=== PATIENT | female | born 1965 | race Two or more races ===

== ENCOUNTER 2020-04-25 09:14 | Outpatient (CLI) | payer OTHER | END 2020-04-25 09:16 | disposition home or self-care (01) | LOC: SONOGRAMA 09:14 | PROVIDERS: ATTEND Pathology Anatomic Pathology & Clinical Pathology | DX: E04.1 Nontoxic single thyroid nodule (principal) ==

== ENCOUNTER 2024-10-23 08:06 | Outpatient (CLI) | payer OTHER ==
[2024-10-23 09:33] LABS: URINE APPEARANCE Clear; URINE BILIRRUBIN Negative (NEGATIVE); URINE BLOOD Negative; URINE COLOR Yellow; URINE KETONE Trace (NEGATIVE); URINE LEUKOCYTE Negative; URINE NITRATE Negative; URINE PROTEIN Negative (NEGATIVE); URINE UROBILINOGEN 0.2 E.U./dl
[2024-10-23 09:37] LABS: URINE BACTERIA 146.8 uL (0.0-1933); URINE EPITHELIAL CELLS 9.9 uL (0.0-38.8); URINE RBC 2.2 uL (0.0-20.8); URINE WBC 42.5 uL (0.0-23.2)
[2024-10-23 09:39] LABS: HEMATOCRIT 42.1 % (36.0-45.00); HEMOGLOBIN 14.1 g/dL (12.0-15.00); MEAN CELL VOLUME 83.3 fL (80.00-100.00); MEAN CORPUSCULAR HEMOGLOBIN 27.9 pg (27.00-32.0); MEAN CORPUSCULAR HGB CONC 33.5 g/dl (32.0-36.0); PLATELET COUNT 259 K/uL (150-450); RED BLOOD COUNT 5.06 M/uL (4.00-6.00); RED CELL DISTRIBUTION WIDTH 13.9 % (11.5-14.5)
[2024-10-23 10:11] LABS: COL EPI 126 SECONDS (82-175)
[2024-10-23 10:22] LABS: PROTHROMBIN TIME 10.9 SECONDS (9.0-11.5)
[2024-10-23 10:26] LABS: ALBUMIN 3.9 gm/dL (3.4-5.0); BILIRUBIN TOTAL 0.48 mg/dL (0.3-1.2); CALCIUM 9.5 mg/dL (8.5-10.1); CREATININE SERUM 0.61 mg/dL (0.55-1.02); GFR 99.71; GLOBULINA 3.5 G/DL (2.4-3.5); POTASSIUM 4.13 mEq/L (3.5-5.1); TOTAL PROTEIN 7.4 gm/dL (6.4-8.2)
[2024-10-23 10:33] LABS: URINE CAST 0.14 uL (0.0-1.40); URINE GLUCOSE >=1000 MG/DL (NEGATIVE)
== END 2024-10-23 08:33 | disposition home or self-care (01) ==
LOC: LAB 08:06 → RAD 08:06
PROVIDERS: ATTEND Orthopaedic Surgery
DX: Z76.89 Persons encountering health services in other specified circumstances (principal); D64.9 Anemia, unspecified; D68.8 Other specified coagulation defects; N39.0 Urinary tract infection, site not specified; E11.8 Type 2 diabetes mellitus with unspecified complications

== ENCOUNTER 2024-12-18 08:44 | Outpatient (CLI) | payer OTHER ==
[2024-12-18 10:13] LABS: BASO % 0.3 % (0.1-1.2); EOS # 0.01 (0.04-0.54); EOS % 0.1 % (0.7-7.0); HEMATOCRIT 43.2 % (34.1-44.9); LYMPH # 0.79 (1.18-3.74); LYMPH % 10.6 % (19.3-53.1); MEAN CORPUSCULAR HEMOGLOBIN 27.4 pg (25.6-32.2); MONO # 0.36 (0.24-0.82); MONO % 4.9 % (4.7-12.5); NEUT # 6.22 (1.56-6.13); NEUT % 83.8 % (34.0-71.1); PLATELET COUNT 278 K/uL (163-369); RED BLOOD COUNT 5.11 M/uL (3.93-5.22); RED CELL DISTRIBUTION WIDTH 13.2 % (11.6-14.4)
[2024-12-18 10:45] LABS: ERYTHROCYTE SEDIMENTATION RATE 18 mm/hr
== END 2024-12-18 08:45 | disposition home or self-care (01) ==
LOC: LAB 08:44
PROVIDERS: ATTEND Orthopaedic Surgery
DX: D64.9 Anemia, unspecified (principal); M06.4 Inflammatory polyarthropathy